=== PATIENT | male | born 1960 | race Caucasian/White ===

== ENCOUNTER 2017-11-14 12:38 | Emergency (ER) | payer BC, OTHER ==
[~2017-11-14] VITALS: Ht 180.3 cm; Wt 120.2 kg
[~2017-11-14 12:38] MED LIST: CETI10CA PO; DIPH25TA62 PO; EPIN0.1516 IM; FAMO-132 PO; PRED20TA PO
[2017-11-14 12:55] VITALS: BP_SYST 167
[2017-11-14] MEDS ORDERED: PREDNISONE 20 MG TABLET PO ONE (13:15)
[2017-11-14] MEDS ORDERED: EPINEPHrine 1 MG/ML AMP SUBCUT ONE (13:15)
[2017-11-14] MEDS ORDERED: DIPHENHYDRAMINE INJ 50 MG/ML VIAL IVP ONE (13:15)
[2017-11-14 14:30] VITALS: BP_SYST 167
== END 2017-11-14 14:30 | disposition home or self-care (01) ==
LOC: SED 12:38
DX: L50.9 Urticaria, unspecified (principal); I10 Essential (primary) hypertension; Z79.899 Other long term (current) drug therapy
CPT/HCPCS: 96372; 99283; J0171; J7512

== ENCOUNTER 2017-11-22 09:59 | Emergency (ER) | payer BC ==
[~2017-11-22] VITALS: Ht 180.3 cm; Wt 122.5 kg
[2017-11-22 10:06] VITALS: BP_SYST 114
[2017-11-22] MEDS ORDERED: methylPREDNISolone SOD SUCC/PF 62.5 MG/ML VIAL IVP ONE (10:30)
[2017-11-22] MEDS ORDERED: DIPHENHYDRAMINE INJ 50 MG/ML VIAL IVP ONE (10:30)
[2017-11-22] MEDS ORDERED: LORazepam 2 MG/ML VIAL (FOR ER USE) IVP ONE (10:30)
[2017-11-22 11:15] VITALS: BP_SYST 110
== END 2017-11-22 11:15 | disposition home or self-care (01) ==
LOC: SED 09:59
DX: L50.9 Urticaria, unspecified (principal); I10 Essential (primary) hypertension; Z79.899 Other long term (current) drug therapy
CPT/HCPCS: 96374; 96375; 99284; J1200; J2060; J2930